=== PATIENT | male | born 1970 | race Caucasian/White ===

== ENCOUNTER 2020-07-03 17:26 | Emergency (ER) | payer OTHER ==
--- OUTSIDE RECORDS SUMMARY | 2020-07-03 17:28 | XMS REPORT | Continuity of Care Document ---
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 [facility] BMI Active Problem 02/08/2020 eCW: Suga r 30.0-30.9,alex [facility] Encounter for Active Diagnosis 02/08/2020 eCW: [facility] screening [facility] Medications Medication Details Route Status Patient Ordering Order Source Instructions Provider Date Viagra 1 tab(s) orally Active 50 mg orally Pozzi 08/08/19 eCW: Suga r once a day 15 [facility] Naprosyn 1 tab(s) orally Active 500 mg orally 2 Pozzi 08/08/19 eCW: Sugar times a day w/ [facility] Garamycin 1 gtt in each Active 0.3% in each Pozzi eCW: Suga kathryn Ophthalmic eye eye 4 times a [facility] Allergies, Adverse Reactions, Alerts Substance Category Reaction Severity Reaction Status Date Comments S ource type Reported N.K.D.A. Adverse Info Not Adverse eCW: Reaction Available Reaction 0 Sug r [facility] Immunizations No Data Provided for This Section Results No Data Provided for This Section Pathology Reports No Data Provided for This Section Diagnostic Reports No Data Provided for This Section Consultation Notes No Data Provided for This Section Discharge Summaries No Data Provided for This Section History and Physicals No Data Provided for This Section Vital Signs Vital Sign Value Date Comments Source Height 70 01/31/2020 eCW: [facility] Weight 215 01/31/2020 eCW: [facility] Encounters No Data Provided for This Section Procedures No Data Provided for This Section Assessment and Plan No Data Provided for This Section Plan of Care No Data Provided for This Section Social History No Data Provided for This Section Family History No Data Provided for This Section Advance Directives No Data Provided for This Section Functional Status No Data Provided for This Section
[2020-07-03] MEDS ORDERED: NA CHLORIDE 0.9% 1,000 ML ONE (18:49)
[2020-07-03 18:53] LABS: Absolute Lymphocytes (CBC) 2.5 K/uL (0.7-4.9); Basophils % 0.8 % (0-1.3); Hematocrit 46.6 % (39.6-49.0); Lymphocytes % 24.2 % (15.3-44.8); MPV 8.9 fL (7.6-11.3); RBC Red Blood Cell Count 5.25 M/uL (4.33-5.43)
[2020-07-03 18:54] LABS: Protime INR 1.03
--- NOTE | 2020-07-03 19:13 | RAD REPORT ---
EXAM DESCRIPTION: Abran Single View07/03/2020 6:26 pm CLINICAL HISTORY: Palpitations COMPARISON: none FINDINGS: The lungs appear clear of acute infiltrate. The heart is normal size IMPRESSION: No acute abnormalities displayed
[2020-07-03 19:16] LABS: ALT/SGPT 27 U/L (12-78); AST/SGOT 19 U/L (15-37); Albumin 4.2 g/dL (3.4-5.0); Alkaline Phosphatase 53 U/L (45-117); BUN Blood Urea Nitrogen 25 mg/dL (7-18); Bicarbonate 26 mmol/L (21-32); Bilirubin Direct 0.2 mg/dL (0-0.2); Bilirubin Total 0.6 mg/dL (0.2-1.0); Glucose Level 96 mg/dL (74-106); Magnesium 2.2 mg/dL (1.8-2.4); NT PRO-BNP 56 pg/mL (<125); Potassium 3.7 mmol/L (3.5-5.1); Protein, Total 8.1 g/dL (6.4-8.2); Sodium Level 139 mmol/L (136-145); Troponin (Emerg Dept Use Only) < 0.02 ng/mL (0.0-0.045)
--- NOTE | 2020-07-03 20:15 | ER ---
Nurse's Notes [facility] Name: Seth Means Age: 50 yrs Sex: Male : 1970 Arrival Date: 07/03/2020 Time: 17:46 Bed 15 Private MD: Diagnosis: Dehydration;Palpitations Presentation: 07/03 17:46 Acuity: JAMSHID 3 zb 17:51 Chief complaint: EMS states: pt watch alerted him that his heart rated was elevated in zb the 160's called EMS initial heart rate for ems 112, retaken 15 mins 107 blood pressure 124/81. history of broken rib last week. takes naproxen for pain. Coronavirus screen: At this time, the client does not indicate any symptoms associated with coronavirus-19. Ebola Screen: No symptoms or risks identified at this time. Initial Sepsis Screen: Does the patient meet any 2 criteria? No. Patient's initial sepsis screen is negative. Does the patient have a suspected source of infection? No. Patient's initial sepsis screen is negative. Risk Assessment: Do you want to hurt yourself or someone else? Patient reports no desire to harm self or others. Onset of symptoms was July 03, 2020. 17:51 Method Of Arrival: EMS: [facility] zb Triage Assessment: 18:01 General: Appears in no apparent distress. comfortable, Behavior is calm, cooperative, zb appropriate for age. Pain: Denies pain. EENT: Neuro: Level of Consciousness is awake, alert, obeys commands, Oriented to person, place, time, situation. Cardiovascular: Capillary refill < 3 seconds in bilateral fingers Patient's skin is warm and dry. Respiratory: Airway is patent Respiratory effort is even, unlabored, Respiratory pattern is regular, symmetrical, Breath sounds are clear bilaterally. GI: Abdomen is round non-distended, Bowel sounds present X 4 quads. : No signs and/or symptoms were reported regarding the genitourinary system. Derm: Skin is intact, is healthy with good turgor, Skin is dry, Skin is normal, Skin temperature is warm. Musculoskeletal: Circulation, motion, and sensation intact. Capillary refill < 3 seconds, in bilateral fingers. Range of motion: intact in all extremities. Historical: - Allergies: 18:00 No Known Allergies; zb - Home Meds: 18:00 Multiple Vitamins Oral [Active]; naproxen 500 mg Oral TbEC 1 tab 2 times per day zb [Active]; - PMHx: 18:00 rib fracture; zb - PSHx: 18:01 lasik; zb - Immunization history:: Adult Immunizations up to date, Flu vaccine is not up to date. It has been more than one year since last vaccine. - Social history:: Smoking status: Patient denies any tobacco usage or history of. Screenin:00 Abuse screen: Denies threats or abuse. Denies injuries from another. Nutritional zb screening: No deficits noted. Tuberculosis screening: No symptoms or risk factors identified. Fall Risk None identified. Assessment: 18:00 Reassessment: see triage assessment. zb 19:00 Reassessment: Patient appears in no apparent distress at this time. Patient and/or zb family updated on plan of care and expected duration. Pain level reassessed. Patient is alert, oriented x 3, equal unlabored respirations, skin warm/dry/pink. vistors at bedside Patient denies pain at this time. 20:44 Reassessment: Patient appears in no apparent distress at this time. Patient and/or zb family updated on plan of care and expected duration. Pain level reassessed. Patient is alert, oriented x 3, equal unlabored respirations, skin warm/dry/pink. d/c pending completion of IV fluids. 21:08 Reassessment: Reassessment: Patient appears in no apparent distress at this time. zb Patient and/or family updated on plan of care and expected duration. Pain level reassessed. Patient is alert, oriented x 3, equal unlabored respirations, skin warm/dry/pink. family at bedside . no c/o of pain at this time. 22:20 Reassessment: Patient appears in no apparent distress at this time. Patient and/or zb family updated on plan of care and expected duration. Pain level reassessed. Patient is alert, oriented x 3, equal unlabored respirations, skin warm/dry/pink. pt d/c ambulatory. family at bedside. gait even and steady. Vital Signs: 17:51 BP 117 / 82; Pulse 83; Resp 16; Temp 98.8; Pulse Ox 98% on R/A; Weight 97.52 kg; Height zb 5 ft. 10 in. (177.80 cm); Pain 0/10; 19:00 BP 114 / 84; Pulse 89; Resp 16; Pulse Ox 97% on R/A; zb 19:46 BP 120 / 76 RA Supine (auto/reg); Pulse 73; Resp 18; Pulse Ox 97% on R/A; dh4 19:46 BP 121 / 83 RA Sitting (auto/reg); Pulse 83; Resp 13; Pulse Ox 97% ; dh4 19:46 BP 121 / 83 RA Standing (auto/reg); Pulse 92; Resp 21; Pulse Ox 97% on R/A; dh4 20:42 BP 111 / 77; Pulse 96; Resp 18; Pulse Ox 96% on R/A; zb 21:20 BP 106 / 69; Pulse 67; Resp 16; Pulse Ox 97% on R/A; zb 17:51 Body Mass Index 30.85 (97.52 kg, 177.80 cm) zb ED Course: 17:46 Patient arrived in ED. zb 17:46 Triage completed. zb 17:47 Braden Alvarado NP is PHCP. pm1 17:47 Akbar Rivera MD is Attending Physician. pm1 18:02 Patient has correct armband on for positive identification. Placed in gown. Bed in low zb position. Call light in reach. Side rails up X 1. Adult w/ patient. Pulse ox on. NIBP on. Door closed. Noise minimized. 18:03 Shannan Viera, YASMINE is Primary Nurse. zb 18:03 Arm band placed on right wrist. zb 18:14 EKG done, by ED staff, reviewed by Braden Alvarado NP. zb 18:26 XRAY Chest (1 view) In Process Unspecified. EDMS 18:32 Inserted saline lock: 22 gauge in left antecubital area, using aseptic technique. zb Missed attempt(s): 20 gauge in right antecubital area. 22:22 No provider procedures requiring assistance completed. IV discontinued, intact, zb bleeding controlled, No redness/swelling at site. Pressure dressing applied. Administered Medications: 19:16 Drug: NS 0.9% 1000 ml Route: IV; Rate: 1000 ml; Site: left antecubital; zb 21:51 Follow up: Response: No adverse reaction; IV Status: Completed infusion; IV Intake: zb 1000ml Intake: 21:51 IV: 1000ml; Total: 1000ml. luz marina Outcome: 20:09 Discharge ordered by pm1 22:22 Discharged to home ambulatory. luz marina 22:22 Condition: stable 22:22 Discharge instructions given to patient, Instructed on discharge instructions, follow up and referral plans. Demonstrated understanding of instructions, follow-up care. 22:22 Patient left the ED. luz marina Signatures: Dispatcher [employer] EDWI Braden Alvarado NP GAS OPERATIONS SUPERINTENDENT pm1 Ministerio Banks [facility] Shannan Viera RN RN zstephanie Corrections: (The following items were deleted from the chart) 22: 21:08 Reassessment: luz marina raza
--- NOTE | 2020-07-03 20:15 | EDPHYS ---
Physician Documentation [facility] Name: Seth Means Age: 50 yrs Sex: Male : 1970 Arrival Date: 07/03/2020 Time: 17:46 Bed 15 Private MD: ED Physician Akbar Rivera HPI: 07/03 17:57 This 50 yrs old Male presents to ER via Unassigned with complaints of pm1 Palpitations. 17:57 The patient presents with a history of heart racing. Context: The symptoms occur pm1 without known cause, Patient was in the control room at work and started feeling strange. his apple watch started beeping and he saw an elevated heart rate. He tried to walk it off and his heart rate good higher, up to 160. He then called for medical team at [facility] which transferred him here. Onset: The symptoms/episode began/occurred just prior to arrival. Duration: The patient or guardian reports a single episode. Modifying factors: The symptoms are aggravated by nothing. The symptoms are alleviated by nothing. Associated signs and symptoms: Pertinent positives: SOB when palpations present and when he was trying to walk it off, Pertinent negatives: chest pain, cough, fever, nausea, syncope, near-syncope, vomiting. Severity of symptoms: in the emergency department the symptoms have resolved. Patient has left posterior rib pain from a fall injury 1 week ago. Seen by PCP for injury and was prescribed NSAID. Historical: - Allergies: 18:00 No Known Allergies; zb - Home Meds: 18:00 Multiple Vitamins Oral [Active]; naproxen 500 mg Oral TbEC 1 tab 2 times per day zb [Active]; - PMHx: 18:00 rib fracture; zb - PSHx: 18:01 lasik; zb - Immunization history:: Adult Immunizations up to date, Flu vaccine is not up to date. It has been more than one year since last vaccine. - Social history:: Smoking status: Patient denies any tobacco usage or history of. ROS: 18:09 Constitutional: Negative for fever, chills, and weight loss, Neck: Negative for injury, pm1 pain, and swelling. 18:09 Respiratory: Negative for shortness of breath, cough, wheezing, and pleuritic chest pain, Abdomen/GI: Negative for abdominal pain, nausea, vomiting, diarrhea, and constipation, Back: Negative for injury and pain, MS/Extremity: Negative for injury and deformity, Skin: Negative for injury, rash, and discoloration. 18:09 Cardiovascular: Positive for palpitations, Negative for chest pain, edema, orthopnea. 18:09 Neuro: Positive for dizziness, Negative for headache, numbness, tingling, weakness. Exam: 18:09 Constitutional: This is a well developed, well nourished patient who is awake, alert, pm1 and in no acute distress. Head/Face: Normocephalic, atraumatic. Chest/axilla: Normal chest wall appearance and motion. Nontender with no deformity. No lesions are appreciated. Cardiovascular: Regular rate and rhythm with a normal S1 and S2. No gallops, murmurs, or rubs. Normal PMI, no JVD. No pulse deficits. Respiratory: Lungs have equal breath sounds bilaterally, clear to auscultation and percussion. No rales, rhonchi or wheezes noted. No increased work of breathing, no retractions or nasal flaring. 18:09 Back: No spinal tenderness. No costovertebral tenderness. Full range of motion. Skin: Warm, dry with normal turgor. Normal color with no rashes, no lesions, and no evidence of cellulitis. MS/ Extremity: Pulses equal, no cyanosis. Neurovascular intact. Full, normal range of motion. 18:09 Abdomen/GI: Inspection: abdomen appears normal, Palpation: abdomen is soft and non-tender, in all quadrants. 18:09 Neuro: Exam negative for acute changes, Orientation: is normal, Mentation: is normal, Motor: is normal, moves all fours, Sensation: is normal, no obvious gross deficits. Vital Signs: 17:51 BP 117 / 82; Pulse 83; Resp 16; Temp 98.8; Pulse Ox 98% on R/A; Weight 97.52 kg; Height zb 5 ft. 10 in. (177.80 cm); Pain 0/10; 19:00 BP 114 / 84; Pulse 89; Resp 16; Pulse Ox 97% on R/A; zb 19:46 BP 120 / 76 RA Supine (auto/reg); Pulse 73; Resp 18; Pulse Ox 97% on R/A; dh4 19:46 BP 121 / 83 RA Sitting (auto/reg); Pulse 83; Resp 13; Pulse Ox 97% ; dh4 19:46 BP 121 / 83 RA Standing (auto/reg); Pulse 92; Resp 21; Pulse Ox 97% on R/A; dh4 20:42 BP 111 / 77; Pulse 96; Resp 18; Pulse Ox 96% on R/A; zb 21:20 BP 106 / 69; Pulse 67; Resp 16; Pulse Ox 97% on R/A; zb 17:51 Body Mass Index 30.85 (97.52 kg, 177.80 cm) zb MDM: 17:47 Patient medically screened. pm1 20:08 Data reviewed: vital signs. Data interpreted: Pulse oximetry: on room air is 97 %. pm1 Interpretation:. Counseling: I had a detailed discussion with the patient and/or guardian regarding: the historical points, exam findings, and any diagnostic results supporting the discharge/admit diagnosis, lab results, radiology results, the need for outpatient follow up, to return to the emergency department if symptoms worsen or persist or if there are any questions or concerns that arise at home. 07/03 17:56 Order name: Basic Metabolic Panel; Complete Time: 19:18 pm07/03 17:56 Order name: CBC with Diff; Complete Time: 19:18 pm07/03 17:56 Order name: LFT's; Complete Time: 19:18 pm07/03 17:56 Order name: Magnesium; Complete Time: 19:18 pm07/03 17:56 Order name: NT PRO-BNP; Complete Time: 19:18 pm07/03 17:56 Order name: PT-INR; Complete Time: 19:18 pm07/03 17:56 Order name: Troponin (emerg Dept Use Only); Complete Time: 19:18 pm07/03 17:56 Order name: XRAY Chest (1 view); Complete Time: 19:18 pm07/03 17:56 Order name: EKG; Complete Time: 17:57 pm07/03 17:56 Order name: Cardiac monitoring; Complete Time: 18:13 pm07/03 17:56 Order name: EKG - Nurse/Tech; Complete Time: 18:13 pm07/03 17:56 Order name: IV Saline Lock; Complete Time: 18:31 pm07/03 17:56 Order name: TSH; Complete Time: 19:18 pm1 07/03 17:56 Order name: Labs collected and sent; Complete Time: 18:31 pm1 07/03 17:56 Order name: O2 Per Protocol; Complete Time: 18:03 pm1 07/03 17:56 Order name: O2 Sat Monitoring; Complete Time: 18:03 pm1 07/03 17:56 Order name: Orthostatics; Complete Time: 20:37 pm1 Administered Medications: 19:16 Drug: NS 0.9% 1000 ml Route: IV; Rate: 1000 ml; Site: left antecubital; zb 21:51 Follow up: Response: No adverse reaction; IV Status: Completed infusion; IV Intake: zb 1000ml Disposition: 07/03/20 20:09 Discharged to Home. Impression: Palpitations, Dehydration. - Condition is Stable. - Discharge Instructions: Dehydration, Adult, Palpitations, Rehydration, Adult. - Medication Reconciliation Form, Thank You Letter, Antibiotic Education, Prescription Opioid Use form. - Follow up: Emergency Department; When: As needed; Reason: Worsening of condition. Follow up: Private Physician; When: 2 - 3 days; Reason: Recheck today's complaints, Continuance of care, Re-evaluation by your physician. - Problem is new. - Symptoms have improved. Addendum: 07/05/2020 06:51 Co-signature as Attending Physician, Akbar Rivera MD I agree with the assessment and c marte plan of care. Signatures: Dispatcher [employer] Akbar Graves MD MD cha Marinas, Patrick, BACK SEWER BACK SEWER pm1 Shannan Viera RN RN zb Corrections: (The following items were deleted from the chart) 07/03 22:22 20:09 07/03/2020 20:09 Discharged to Home. Impression: PalpitationsDehydration. zb Condition is Stable. Forms are Medication Reconciliation Form, Thank You Letter, Antibiotic Education, Prescription Opioid Use. Follow up: Emergency Department; When: As needed; Reason: Worsening of condition. Follow up: Private Physician; When: 2 - 3 days; Reason: Recheck today's complaints, Continuance of care, Re-evaluation by your physician. Problem is new. Symptoms have improved. pm1
[2020-07-03 23:05] VITALS: BP 106/69; O2SAT 97
[2020-07-03 23:43] VITALS: TEMP 99
--- NOTE | 2020-07-04 08:18 | EKG ---
Test Date: 2020-07-03 Test Time: 18:11:02 Rn Allergy: HOLLEY MEASUREMENT RESULTS: Intervals: Rate: 88 OH: 142 QRSD: 90 QT: 346 QTc: 418 [place]: P: 37 OH: 142 QRS: 5 T: 41 INTERPRETIVE STATEMENTS: Normal sinus rhythm Normal ECG No previous ECG available for comparison Electronically Signed On 07-04-20 08:17:25 OIL SPECULATOR by Dinesh Vasquez
== END 2020-07-03 22:22 | disposition home or self-care (01) ==
LOC: ER 17:26
DX: E86.0 Dehydration (principal)
CPT/HCPCS: 96361; 93005; 85025; 80048; 36415; 83735; 85610; 80076; 84443; 84484; 83880; 71045; 96360; 99284; J7030

== ENCOUNTER 2022-06-19 15:41 | Emergency (ER) | payer OTHER ==
--- OUTSIDE RECORDS SUMMARY | 2022-06-19 15:46 | XMS REPORT | Continuity of Care Document ---
:1970 Author Organization [facility] t Address [address] [place] [address] Care Team Providers Name Role Phone Marky BARLOW, Jarod Pleitez Primary Care Physician Paresh BARLOW, Angelina Drew Attending Clinician [phone] CHRISTINA MARTINEZ Attending Clinician Unavailable Payers Payer Name Policy Type Policy Number Effective Date Expiration Date S ource Problems Condition Condition Condition Status Onset Resolution Last Treating Co mments Source Name Details Category Date Date Treatment Clinician Date Tachycardi Tachycard Diagnosis Active 2020-08-02 Memoria a ia Active 05:18:44 l Diagnosis [place] 08/02/2020 eCW: [facility] BMI BMI Problem Active 2020-08-02 Memor ia 30.0-30.9, 30.0-30.9, 05:18:44 l adult adult Jean Active Problem 08/02/2020 eCW: [facility] [place] Diagnosis Active 2020-02-08 Memoria 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 Social History Social Habit Start Date Stop Date Quantity Comments Source Tobacco use and 2021-02-01 2021-02-01 Former smokeless [facility] exposure 00:00:00 00:00:00 tobacco user Hospital Alcohol intake 2021-02-01 2021-02-01 Current drinker [facility] 00:00:00 00:00:00 of alcohol Hospital (finding) Alcohol Comment 2021-02-01 2021-02-01 Not every week [facility] 00:00:00 00:00:00 maybe 2/3 a month Hospita l History of 2015-06-30 Snuff User [facility] tobacco use 00:00:00 Hospital Sex Assigned At [birth year] M [facility] 00:00:00 [facility]:00:00 Hospital Smoking Status Start Date Stop Date Source Never smoked tobacco [facility] Medications Ordered Filled Start Stop Current Ordering Indication Dosage Frequency Signature Comments Components Source Medication Medication Date Date Medication? Clinician (SIG) Name Name methylpheni Yes 18mg QD Take 1 Meth little date HCl 9-19 tablet (18 st (CONCERTA) 00:00: mg total) Ho spita 18 MG CR 00 by mouth l tablet every morning. Max Daily Amount: 18 mg multivitami Yes 1{tbl} QD Take 1 Me thodi n tablet 9-[address] 09:09: mouth Hospita 26 daily. l Garamycin Yes Jarod Pozzi 1 gtt M emoria Ophthalmic 2-03 l 05:18: 44 Garamycin Yes Jarod Pozzi 1 gtt M emoria Ophthalmic 2-03 l 05:18: 44 Medrol Dose 2020-0 Yes Jarod Pozzi As Memoria Pack 8-03 directed l 00:00: valacyclovi 2020-0 Yes Jarod Pozzi 1 tab(s) Memoria r 8-03 l 00:00: Medrol Dose 2020-0 Yes Jarod Pozzi As Memoria Pack 8-03 directed l 00:00: valacyclovi 2020-0 Yes Jarod Pozzi 1 tab(s) Memoria r 8-03 l 00:00: Viagra 2014-0 Yes Jarod Pozzi 1 tab(s) M emoria 2-09 l 00:00: Naprosyn 0 Yes Jarod Pozzi 1 tab(s) Memoria 2-09 l 00:00: Viagra Yes Jarod Pozzi 1 tab(s) M emoria 2-09 l 00:00: [place] Naprosyn Yes Jarod Pozzi 1 tab(s) Memoria 2-09 l 00:00: [place] Viagra Yes Jarod Shukrizzi 1 tab(s) M emoria 2-09 l 00:00: [place] Viagra Yes Jarod Shukrizzi 1 tab(s) M emoria 2-09 l 00:00: [place] Vital Signs Vital Name Observation Time Observation Value Comments Source Systolic blood 2022-03-22 14:16:00 116 mm[Hg] [facility] pressure Diastolic blood 2022-03-22 14:16:00 80 mm[Hg] [facility] pressure Heart rate 2022-03-22 14:16:00 78 /min [facility] Body height 2022-03-22 14:16:00 177.8 cm [facility] Body weight 2022-03-22 14:16:00 87 kg [facility] BMI 2022-03-22 14:16:00 27.52 kg/m2 [facility] Height 2020-07-05 15:45:00 [facility] [place] Weight 2020-07-05 15:45:00 [facility] Temperature Oral (F) 2020-07-05 15:45:00 96.9 F [facility] Diastolic (mm Hg) 2020-07-05 15:45:00 Mem orial [place] Systolic (mm Hg) 2020-07-05 15:45:00 Quan rial [place] Height 2020-01-31 20:00:00 [facility] Weight 2020-01-31 20:00:00 [facility] [place] Procedures This patient has no known procedures. Plan of Care Planned Activity Planned Date Details Comments Source Future Scheduled 2022-06-13 COVID-19 VACCINE (#1) [facility] Test 02:59:05 [code = COVID-19 VACCINE (#1)] Future Scheduled 2022-06-13 Pneumococcal Vaccine: [facility] Test 02:59:05 Pediatrics (0 to 5 Years) and At-Risk Patients (6 to 64 Years) (1 - PCV) [code = Pneumococcal Vaccine: Pediatrics (0 to 5 Years) and At-Risk Patients (6 to 64 Years) (1 - PCV)] Future Scheduled 2022-06-13 Hepatitis C screening [facility] Test 02:59:05 (procedure) [code = 188196265] Future Scheduled 2022-06-13 COLONOSCOPY SCREENING [facility] Test 02:59:05 [code = COLONOSCOPY SCREENING] Future Scheduled 2022-06-13 SHINGLES VACCINES (1 Met [facility] Test 02:59:05 of 2) [code = SHINGLES VACCINES (1 of 2)] Future Scheduled 2022-06-13 INFLUENZA VACCINE [facility] Test 02:59:05 [code = INFLUENZA VACCINE] Encounters Start End Encounter Admission Attending Care Care Encounter Source Date/Time Date/Time Type Type Clinicians Facility Department ID 2022-06-19 Outpatient [id number] Memoria 15:45:17 [id number] Jean [id number] 2022-03-22 Outpatient [id number] Memoria 09:08:18 [id number] Jean [id number] 2021-06-08 Outpatient [id number] Memoria 19:25:57 [id number] Jean [id number] 2022-03-22 2022-03-22 Office Karma [id number] Methodi 09:20:00 09:32:09 Visit stephanie [id number] [facility] [id number] Hospi ta Viki [id number] l .8 2022-03-22 2022-03-22 Outpatient MARTINEZ, [facility] [id number] [place] 00:00:00 00:00:00 VASQUEZ 135 Method i 2022-03-22 2022-03-22 Outpatient WICKRAMASIN [facility] [id number] [place] 00:00:00 00:00:00 GHE, 074 Method i [facility] 2022-03-22 2022-03-22 Travel [id number] Methodi 00:00:00 00:00:00 [id number] Ho spita .[id number] 084.8 l .8 2021-03-16 2021-03-16 Outpatient WICKRAMASIN [facility] [id number] [place] 00:00:00 00:00:00 GHE, 883 Method i [facility] 2021-02-01 2021-02-01 Outpatient WICKRAMASIN [facility] [id number] [place] 00:00:00 00:00:00 GHE, 722 Method i [facility] 2020-07-05 2020-07-05 Outpatient [place] [id number] Memoria 09:45:00 09:45:00 [facility] Family Practice [place] Practice 2020-01-31 2020-01-31 Outpatient [place] [id number] Memoria 15:00:00 15:00:00 [facility] Practice TV Herm nasra Practice TV Results This patient has no known results.
--- NOTE | 2022-06-19 16:03 | ER ---
Nurse's Notes [facility] Name: Seth Means Age: 52 yrs Sex: Male : 1970 Arrival Date: 06/19/2022 Time: 15:45 Bed Waiting Private MD: Diagnosis: Historical: ED Course: 06/19 15:45 Patient arrived in ED. mr 15:59 Patient's name was called from ER lobby. No response. aa5 16:02 Abel Nieto MD is Attending Physician. aa5 Administered Medications: No medications were administered Outcome: 15:59 Eloped from waiting room, before triage. ER registration staff notified me that pt aa5 eloped. 16:02 Patient left the ED. aa5 17:04 Patient left the ED. iw Signatures: Sumi Ragsdale mr Doris Cordero, RN RN iw Komal Brooke RN RN aa5 Corrections: (The following items were deleted from the chart) 16:01 16:01 Allergies: No Known Allergies; aa5 aa5 16:01 16:01 PMHx: Rib Fracture; aa5 aa5 16:01 16:01 Arm band placed on aa5 aa5
== END 2022-06-19 17:04 | disposition left against medical advice (07) ==
LOC: ER 15:41
DX: Z02.9 Encounter for administrative examinations, unspecified (principal)